=== PATIENT | male | born 1970 | race Two or more races ===

== ENCOUNTER → 2016-12-30 | Outpatient (CLI) | payer OTHER, MEDICAID | LOC: FIMAGING 09:27 | PROVIDERS: ATTEND Internal Medicine | DX: N43.3 Hydrocele, unspecified (principal); N50.89 Other specified disorders of the male genital organs; B20 Human immunodeficiency virus [HIV] disease ==

== ENCOUNTER 2018-05-18 16:45 | Emergency (ER) | payer OTHER ==
--- NOTE | 2018-05-18 17:06 | EDPHY ---
H & P Stated Complaint: Fatigue/dysuria Time Seen by Provider: 05/18/18 17:05 HPI/ROS: HPI: This is a 48-year-old male who presents with Chief Complaint: Fatigue, dysuria Location: Quality: Burning urination Duration: Since this morning Signs and Symptoms: + fever, no nausea, no vomiting, no hematemesis, no blood in stool, no abdominal bloating, no diarrhea, + back pain, + urinary symptoms, no testicular/groin pain, no indigestion, no chest pain, no shortness of breath Timing: Acute, rapid onset, constant Severity: Moderate Context: Patient is immunocompromised, HIV positive with undetectable viral load as recent as March 2018, followed by Dr. Jimenez, presents with sudden onset this morning of a temperature of a 102 F accompanied by burning with urination and back pain. Patient reports that he has a history of urethral stricture diagnosed 2 years ago but has not followed up as had an unpleasant experience in the office with Urology. Patient denies any concerns for STDs. Patient received influenza vaccine this year. Patient reports he is able to urinate but feels pressure. Patient also complains of right lower quadrant left lower quadrant abdominal tenderness that is nonradiating in nature. Patient reports fatigue and decreased appetite. Last prostate exam was within the last year. Modifying Factors: Took ibuprofen at 2:00 p.m. Approximately 3 hr prior to arrival Comment: ROS: A comprehensive 10 system review of systems is otherwise negative aside from elements mentioned in the history of present illness. MEDICAL/SURGICAL/SOCIAL HISTORY: Medical history: CHI, HIV Surgical history: ortho surgeries Social history: Never smoked. . Denies drug use. Family history noncontributory. CONSTITUTIONAL: Nontoxic-appearing, polite and cooperative, middle-aged male, awake and alert, no obvious distress HEENT: Atraumatic and normocephalic, PERRL, EOMI. Nares patent; no rhinorrhea; no nasal mucosal edema. Tympanic membranes clear. Oropharynx clear, no exudate and moist pink mucosa. Airway patent. No lymphadenopathy. No meningismus. Cardiovascular: Normal S1/S2, regular rate, regular rhythm, without murmur rub or gallop. PULMONARY/CHEST: Symmetrical and nontender. Clear to auscultation bilaterally. Good air movement. No accessory muscle usage. ABDOMEN: Soft, nondistended, mild right lower quadrant and left lower quadrant tenderness, no rebound, no guarding, no peritoneal signs, no masses or organomegaly. No CVAT. EXTREMITIES: 2/2 pulses, strength 5/5, no deformities, no clubbing, no cyanosis or edema. NEUROLOGICAL: no focal neuro deficits. GCS 15. SKIN: Warm and dry, no erythema. no rash. Good capillary refill. Source: Patient, Old records Exam Limitations: No limitations - Personal History Current Tetanus/Diphtheria Vaccine: Yes - Medical/Surgical History Hx Asthma: No Hx Chronic Respiratory Disease: No Hx Diabetes: No Hx Cardiac Disease: No Hx Renal Disease: No Hx Cirrhosis: No Hx Alcoholism: No Hx HIV/AIDS: Yes Hx Splenectomy or Spleen Trauma: No Other PMH: ortho surgeries, CHI, HIV - Social History Smoking Status: Never smoked Constitutional: Initial Vital Signs Temperature (C) 36.8 C 05/18/18 16:58 Heart Rate 93 05/18/18 16:58 Respiratory Rate 18 05/18/18 16:58 Blood Pressure 120/75 05/18/18 16:58 O2 Sat (%) 95 05/18/18 16:58 O2 Delivery Mode Room Air Allergies/Adverse Reactions: No Known Allergies Allergy (Verified 05/18/18 17:01) Home Medications: Medication Instructions Recorded Complera Tablet 09/03/15 Sulfamethox/Tmp 800/160 mg 1 tab PO BID 28 Days #0 tab 05/18/18 [Bactrim Ds] Medical Decision Making - Diagnostics Imaging Results: Imaging Impressions Abdomen CT 05/18/18 17:11 Impression: 1. Mild bladder wall thickening with left ureteral enhancement, suggesting infection/inflammation, without CT evidence of pyelonephritis. 2. Additional findings, as above. Findings discussed with Elaina Lozano PA-C, on May 18, 2018 at 1842. E:NW/amm ED Course/Re-evaluation: Vital signs reviewed and stable upon arrival. IV access, laboratory studies including lactic acid, urinalysis, urine GC, CT abdomen and pelvis scan ordered Patient will be given 2 L normal saline, p. O. Tylenol 1000 mg High concern for prostatitis. Patient is immuno compromised. 1829: WBC 16 K with left shift, lactic acid 1.2, potassium 3.9, creatinine 1.2 Urinalysis shows 1+ LE, 15-25 WBCs, trace bacteria GC pending; doubt prostatitis is caused by STDs Given IV Rocephin 2 grams and a prescription for Bactrim 184: Called by radiologist who advised that CT abdomen and pelvis scan shows no signs of appendicitis no diverticulitis no obstruction colitis. Does show a thickened bladder which is concerning for cystitis/UTI but no signs of pyelonephritis. 190: Offered patient admission due to immunocompromised with UTI/prostatitis. Patient and politely declined and feel appropriate to be discharged home with Urology follow-up. Vital signs stable at discharge. This patient was seen under the supervision of my secondary supervising physician. I evaluated care for this patient independently. Discussed this patient with Dr. Mane who did not see the patient. Differential Diagnosis: Abdominal pain including but not limited to appendicitis, cholecystitis, gastritis and urinary tract infection. - Data Points Laboratory Results: Laboratory Results 05/18/18 17:20 05/18/18 17:20 05/18/18 05/18/18 05/18/18 17:20 17:20 17:20 WBC RBC Hgb Hct MCV MCH MCHC RDW Plt Count MPV Neut % (Auto) Lymph % (Auto) [place] % (Auto) Eos % (Auto) Baso % (Auto) Nucleat RBC Rel Count Absolute Neuts (auto) Absolute Lymphs (auto) Absolute Monos (auto) Absolute Eos (auto) Absolute Basos (auto) Absolute Nucleated RBC Immature Gran % Immature Gran # VBG Lactic Acid Sodium 135 mEq/L mEq/L (135-145) Potassium 3.9 mEq/L mEq/L (3.5-5.2) Chloride 104 mEq/L mEq/L (97-110) Carbon Dioxide 19 mEq/l L mEq/l (22-31) Anion Gap 12 mEq/L mEq/L (6-14) BUN 15 mg/dL mg/dL (7-23) Creatinine 1.2 mg/dL mg/dL (0.7-1.3) Estimated GFR > 60 Glucose 108 mg/dL H mg/dL (70-100) Calcium 9.2 mg/dL mg/dL (8.5-10.4) Total Bilirubin 1.8 mg/dL H mg/dL (0.1-1.4) Conjugated Bilirubin 0.4 mg/dL mg/dL (0.0-0.5) Unconjugated Bilirubin 1.4 mg/dL H mg/dL (0.0-1.1) AST 28 IU/L IU/L (17-59) ALT 51 IU/L IU/L (21-72) Alkaline Phosphatase 114 IU/L IU/L (38-126) Total Protein 7.6 g/dL g/dL (6.3-8.2) Albumin 4.4 g/dL g/dL (3.5-5.0) Urine Color PALE YELLOW Urine Appearance CLEAR Urine pH 5.0 (5.0-7.5) Ur Specific [place] 1.003 (1.002-1.030) Urine Protein NEGATIVE (NEGATIVE) Urine Ketones NEGATIVE (NEGATIVE) Urine Blood 1+ H (NEGATIVE) Urine Nitrate NEGATIVE (NEGATIVE) Urine Bilirubin NEGATIVE (NEGATIVE) Urine Urobilinogen NEGATIVE EU EU (0.2-1.0) Ur Leukocyte Esterase 1+ H (NEGATIVE) Urine RBC 1-3 /hpf /hpf (0-3) Urine WBC 15-25 /hpf H /hpf (0-3) Ur Epithelial Cells NONE SEEN /lpf /lpf (NONE-1+) Urine Bacteria TRACE /hpf H /hpf (NONE SEEN) Urine Mucus TRACE /lpf /lpf (NONE-1+) Urine Glucose NEGATIVE (NEGATIVE) C.trachomatis RNA (TMA) Pending N.gonorrhoeae RNA (TMA) Pending 05/18/18 05/18/18 17:20 17:20 WBC 15.59 10^3/uL H 10^3/uL (3.80-9.50) RBC 4.90 10^6/uL 10^6/uL (4.40-6.38) Hgb 15.4 g/dL g/dL (13.7-17.5) Hct 43.7 % % (40.0-51.0) MCV 89.2 fL fL (81.5-99.8) MCH 31.4 pg pg (27.9-34.1) MCHC 35.2 g/dL g/dL (32.4-36.7) RDW 11.9 % % (11.5-15.2) Plt Count 284 10^3/uL 10^3/uL (150-400) MPV 9.2 fL fL (8.7-11.7) Neut % (Auto) 85.3 % H % (39.3-74.2) Lymph % (Auto) 7.4 % L % (15.0-45.0) [place] % (Auto) 6.4 % % (4.5-13.0) Eos % (Auto) 0.1 % L % (0.6-7.6) Baso % (Auto) 0.3 % % (0.3-1.7) Nucleat RBC Rel Count 0.0 % % (0.0-0.2) Absolute Neuts (auto) 13.31 10^3/uL H 10^3/uL (1.70-6.50) Absolute Lymphs (auto) 1.15 10^3/uL 10^3/uL (1.00-3.00) Absolute Monos (auto) 1.00 10^3/uL H 10^3/uL (0.30-0.80) Absolute Eos (auto) 0.01 10^3/uL L 10^3/uL (0.03-0.40) Absolute Basos (auto) 0.04 10^3/uL 10^3/uL (0.02-0.10) Absolute Nucleated RBC 0.00 10^3/uL 10^3/uL (0-0.01) Immature Gran % 0.5 % % (0.0-1.1) Immature Gran # 0.08 10^3/uL 10^3/uL (0.00-0.10) VBG Lactic Acid 1.2 mmol/L mmol/L (0.7-2.1) Sodium Potassium Chloride Carbon Dioxide Anion Gap BUN Creatinine Estimated GFR Glucose Calcium Total Bilirubin Conjugated Bilirubin Unconjugated Bilirubin AST ALT Alkaline Phosphatase Total Protein Albumin Urine Color Urine Appearance Urine pH Ur Specific [place] Urine Protein Urine Ketones Urine Blood Urine Nitrate Urine Bilirubin Urine Urobilinogen Ur Leukocyte Esterase Urine RBC Urine WBC Ur Epithelial Cells Urine Bacteria Urine Mucus Urine Glucose C.trachomatis RNA (TMA) N.gonorrhoeae RNA (TMA) Medications Given: Discontinued Medications Acetaminophen (Tylenol) 1,000 mg PO EDNOW ONE Stop: 05/18/18 17:13 Last Admin: 05/18/18 17:24 Dose: 1,000 mg Sodium Chloride (Ns) 1,000 mls @ 0 mls/hr IV ONCE ONE; Wide Open PRN Reason: Protocol Stop: 05/18/18 17:12 Last Admin: 05/18/18 17:24 Dose: 1,000 mls Sodium Chloride (Ns) 1,000 mls @ 0 mls/hr IV ONCE ONE; Wide Open PRN Reason: Protocol Stop: 05/18/18 17:12 Last Admin: 05/18/18 17:24 Dose: 1,000 mls Ceftriaxone Sodium 2 gm/ (Sodium Chloride) 50 mls @ 100 mls/hr IV EDNOW ONE PRN Reason: Protocol Stop: 05/18/18 19:12 Last Admin: 05/18/18 19:11 Dose: 50 mls Departure - Departure Disposition: Home, Routine, Self-Care Clinical Impression: Lower urinary tract infection, acute, Acute bacterial prostatitis Condition: Good Instructions: Prostatitis (ED), Urinary Tract Infection in Men (ED) Additional Instructions: Consume a minimum of 8-10 glasses of water or electrolyte fluid replacement drinks that include Gatorade, Powerade, Pedialyte. Take all antibiotic as directed. Do not skip a dose. Keep follow-up appoint with Urology at the end of the month. Return to the Emergency Room if symptoms do not resolve in the next 72 hours or experience intractable abdominal pain/nausea/vomiting. Referrals: Meena Camilo MD [Primary Care Provider] - As per Instructions [facility] [Provider Group] - 06/05/18 Prescriptions: Sulfamethox/Tmp 800/160 mg [Bactrim Ds] 1 tab PO BID 28 Days #0 tab
[2018-05-18] MEDS ORDERED: NS 1,000 ML IV ONE ×2 (17:11)
[2018-05-18] MEDS ORDERED: ACETAMINOPHEN 500 MG TAB PO ONE (17:12)
[2018-05-18 17:34] LABS: PLATELET COUNT 284 10^3/uL (150-400)
[2018-05-18] MEDS ORDERED: IOPAMIDOL (ISOVUE-300) 100 ML BTL ONE (17:38)
[2018-05-18 20:12] VITALS: BP 124/70
[2018-05-19 11:00] LABS: GC AMPLIFICATION GENPROBE NEGATIVE (NEGATIVE)
== END 2018-05-18 20:12 | disposition home or self-care (01) ==
DX: N39.0 Urinary tract infection, site not specified (principal); N41.0 Acute prostatitis; E86.9 Volume depletion, unspecified; Z21 Asymptomatic human immunodeficiency virus [HIV] infection status
CPT/HCPCS: 74177; 96361; 96365; 99285; J0696; Q9967

== ENCOUNTER 2018-05-19 13:18 | Observation (INO) | payer OTHER ==
--- NOTE | 2018-05-19 14:35 | EDPHY ---
H & P Stated Complaint: Pain with urination, bloody stool seen yeasterday for same Time Seen by Provider: 05/19/18 14:32 - Personal History Current Tetanus Diphtheria and Acellular Pertussis (TDAP): Yes - Medical/Surgical History Hx Asthma: No Hx Chronic Respiratory Disease: No Hx Diabetes: No Hx Cardiac Disease: No Hx Renal Disease: No Hx Cirrhosis: No Hx Alcoholism: No Hx HIV/AIDS: Yes Hx Splenectomy or Spleen Trauma: No Other PMH: ortho surgeries, CHI, HIV - Social History Smoking Status: Never smoked Constitutional: Initial Vital Signs Temperature (C) 37.5 C 05/19/18 13:35 Heart Rate 100 05/19/18 13:35 Respiratory Rate 16 05/19/18 13:35 Blood Pressure 141/92 H 05/19/18 13:35 O2 Sat (%) 98 05/19/18 13:35 O2 Delivery Mode Room Air Allergies/Adverse Reactions: No Known Allergies Allergy (Verified 05/18/18 17:01) Home Medications: Medication Instructions Recorded Sulfamethox/Tmp 800/160 mg 1 tab PO BID 28 Days #0 tab 05/18/18 [Bactrim Ds] Acetamn/Diphenhydramine 500/25 1 - 2 each PO HS PRN 05/19/18 [Tylenol PM (*)] Cholecalciferol Vit D3 [Vitamin D3 1,000 units PO DAILY 05/19/18 (*)] Emtricitab/Rilpiviri/Tenof Ala 1 each PO DAILY 05/19/18 [Odefsey Tablet] Ibuprofen/Diphenhydramine Cit 1 - 2 each PO HS PRN 05/19/18 [MOTRIN PM CAPLET] Medical Decision Making ED Course/Re-evaluation: CHIEF COMPLAINT: Black stool, abdominal pain HISTORY OF PRESENT ILLNESS: The patient is a 48 y/o male with HIV with undetectable viral load who returns for the second time in 24 hours now complaining of black stools. He was seen here yesterday for acute onset dysuria , fever, and back pain. An abdominal CT showed bladder wall thickening with left ureteral enhancement, WBC was elevated, and UA showed evidence of a UTI. He was treated with a dose of Rocephin here and discharged on Bactrim as he declined admission. He returns this morning with worsening abdominal pain and black stool. No vomiting. He continues to have polyuria and dysuria, though this is not new for him. He saw a urologist in 2016 and it was recommended he undergo a cystoscopy, but due to a bad experience with that urologist he decided not to return for this procedure. REVIEW OF SYSTEMS: A comprehensive 10 system review of systems is otherwise negative aside from elements mentioned in the history of present illness and medical decision making. PHYSICAL EXAM: HR, BP, O2 Sat, RR. Temp noted General Appearance: Alert, well hydrated, appropriate, and non-toxic appearing. Head: Atraumatic without scalp tenderness or obvious injury Eyes: Pupils equal, round, reactive to light and accommodation, EOMI, no trauma , no injection. Nose: Atraumatic, no rhinorrhea, clear. Throat: Mucus membranes moist. Neck: Supple, non-tender, no lymphadenopathy. Respiratory: No retractions, no distress, no wheezes, and no accessory muscle use. Lungs are clear to auscultation bilaterally. Cardiovascular: Regular rate and rhythm, no murmurs, rubs, or gallops. Good capillary refill all extremities. Gastrointestinal: Abdomen is soft, non-tender, non-distended, no masses, no rebound, no guarding, no peritoneal signs. Musculoskeletal: Normal active ROM of all extremities, atraumatic. Neurological: Alert, appropriate, and interactive. The patient has non-focal cranial nerves, motor, sensory, and cerebellar exam. Skin: No rashes, good turgor, no nodules on palpation. PAST MEDICAL HISTORY: HIV+ no detectable viral load on [facility] and followed by Dr. Camilo; urethral stricture PAST SURGICAL HISTORY: Orthopedic surgeries SOCIAL HISTORY: Nonsmoker. . No drug use. Prior medical records reviewed including ED visit yesterday, 05/18/18, for dysuria. DIFFERENTIAL DIAGNOSIS: The differential diagnosis for the patient's upper GI bleeding included but was not limited to ulcer disease, gastritis, Jeniffer- Rankin tear, and esophageal varices. MEDICAL DECISION MAKING: This is a 48 y/o HIV+ male who presents with a 1-day history of worsening abdominal pain now associated with black stools. He was evaluated yesterday for dysuria and fever and started on antibiotics. An abdominal CT notably showed thickening of the bladder wall and left ureter. Plan for IV, labs, UA, and admission for upper GI bleed. 1500: Consulted with Dr. Lozada, ID. He would not expect upper GI bleeding associated with any of his medications. 80mg IV Protonix ordered for symptoms. Spoke with hospitalist service. Dr. Estrada accepts admission for upper GI bleed and prostatitis. - Data Points Laboratory Results: Laboratory Results 05/19/18 14:35 05/19/18 14:35 05/19/18 05/19/18 05/19/18 14:35 14:35 14:35 WBC 11.43 10^3/uL H 10^3/uL (3.80-9.50) RBC 4.79 10^6/uL 10^6/uL (4.40-6.38) Hgb 15.0 g/dL g/dL (13.7-17.5) Hct 42.8 % % (40.0-51.0) MCV 89.4 fL fL (81.5-99.8) MCH 31.3 pg pg (27.9-34.1) MCHC 35.0 g/dL g/dL (32.4-36.7) RDW 11.9 % % (11.5-15.2) Plt Count 253 10^3/uL 10^3/uL (150-400) MPV 9.1 fL fL (8.7-11.7) Neut % (Auto) 82.1 % H % (39.3-74.2) Lymph % (Auto) 11.3 % L % (15.0-45.0) [place] % (Auto) 5.9 % % (4.5-13.0) Eos % (Auto) 0.1 % L % (0.6-7.6) Baso % (Auto) 0.2 % L % (0.3-1.7) Nucleat RBC Rel Count 0.0 % % (0.0-0.2) Absolute Neuts (auto) 9.39 10^3/uL H 10^3/uL (1.70-6.50) Absolute Lymphs (auto) 1.29 10^3/uL 10^3/uL (1.00-3.00) Absolute Monos (auto) 0.67 10^3/uL 10^3/uL (0.30-0.80) Absolute Eos (auto) 0.01 10^3/uL L 10^3/uL (0.03-0.40) Absolute Basos (auto) 0.02 10^3/uL 10^3/uL (0.02-0.10) Absolute Nucleated RBC 0.00 10^3/uL 10^3/uL (0-0.01) Immature Gran % 0.4 % % (0.0-1.1) Immature Gran # 0.05 10^3/uL 10^3/uL (0.00-0.10) PT 13.8 SEC SEC (12.0-15.0) INR 1.04 (0.83-1.16) APTT 28.2 SEC SEC (23.0-38.0) Sodium 135 mEq/L mEq/L (135-145) Potassium 3.9 mEq/L mEq/L (3.5-5.2) Chloride 102 mEq/L mEq/L (97-110) Carbon Dioxide 23 mEq/l mEq/l (22-31) Anion Gap 10 mEq/L mEq/L (6-14) BUN 10 mg/dL mg/dL (7-23) Creatinine 1.3 mg/dL mg/dL (0.7-1.3) Estimated GFR 59 Glucose 109 mg/dL H mg/dL (70-100) Calcium 9.1 mg/dL mg/dL (8.5-10.4) Total Bilirubin 1.8 mg/dL H mg/dL (0.1-1.4) Conjugated Bilirubin 0.4 mg/dL mg/dL (0.0-0.5) Unconjugated Bilirubin 1.4 mg/dL H mg/dL (0.0-1.1) AST 25 IU/L IU/L (17-59) ALT 49 IU/L IU/L (21-72) Alkaline Phosphatase 108 IU/L IU/L (38-126) Total Protein 7.5 g/dL g/dL (6.3-8.2) Albumin 4.3 g/dL g/dL (3.5-5.0) Lipase 53 IU/L IU/L (23-300) Urine Color Urine Appearance Urine pH Ur Specific [place] Urine Protein Urine Ketones Urine Blood Urine Nitrate Urine Bilirubin Urine Urobilinogen Ur Leukocyte Esterase Urine RBC Urine WBC Ur Epithelial Cells Urine Sperm Urine Glucose 05/19/18 14:00 WBC RBC Hgb Hct MCV MCH MCHC RDW Plt Count MPV Neut % (Auto) Lymph % (Auto) [place] % (Auto) Eos % (Auto) Baso % (Auto) Nucleat RBC Rel Count Absolute Neuts (auto) Absolute Lymphs (auto) Absolute Monos (auto) Absolute Eos (auto) Absolute Basos (auto) Absolute Nucleated RBC Immature Gran % Immature Gran # PT INR APTT Sodium Potassium Chloride Carbon Dioxide Anion Gap BUN Creatinine Estimated GFR Glucose Calcium Total Bilirubin Conjugated Bilirubin Unconjugated Bilirubin AST ALT Alkaline Phosphatase Total Protein Albumin Lipase Urine Color YELLOW Urine Appearance HAZY Urine pH 7.0 (5.0-7.5) Ur Specific [place] 1.010 (1.002-1.030) Urine Protein NEGATIVE (NEGATIVE) Urine Ketones NEGATIVE (NEGATIVE) Urine Blood 1+ H (NEGATIVE) Urine Nitrate NEGATIVE (NEGATIVE) Urine Bilirubin NEGATIVE (NEGATIVE) Urine Urobilinogen 4.0 EU H EU (0.2-1.0) Ur Leukocyte Esterase NEGATIVE (NEGATIVE) Urine RBC 5-10 /hpf H /hpf (0-3) Urine WBC 3-5 /hpf H /hpf (0-3) Ur Epithelial Cells TRACE /lpf /lpf (NONE-1+) Urine Sperm PRESENT /hpf /hpf (NONE SEEN) Urine Glucose NEGATIVE (NEGATIVE) Medications Given: Discontinued Medications Sodium Chloride (Ns) 1,000 mls @ 0 mls/hr IV EDNOW ONE; Wide Open PRN Reason: Protocol Stop: 05/19/18 14:43 Last Admin: 05/19/18 14:57 Dose: 1,000 mls Pantoprazole Sodium (Protonix) 80 mg IVP EDNOW ONE Stop: 05/19/18 15:04 Last Admin: 05/19/18 15:48 Dose: 80 mg Departure - Departure Disposition: [facility] In[facility] Acute Clinical Impression: Upper GI bleed Prostatitis Qualifiers: Prostatitis type: other Qualified Code(s): N41.8 - Other inflammatory diseases of prostate Condition: Fair Referrals: Meena Camilo MD [Primary Care Provider] - As per Instructions Report Scribed for: Landen Tobin Report Scribed by: Pily Mast Date of Report: 05/19/18 Time of Report: 15:05
[2018-05-19] MEDS ORDERED: NS 1,000 ML IV ONE (14:42)
[2018-05-19 14:57] LABS: PLATELET COUNT 253 10^3/uL (150-400)
[2018-05-19 15:02] LABS: INR 1.04 (0.83-1.16); PROTIME(PATIENT) 13.8 SEC (12.0-15.0)
[2018-05-19] MEDS ORDERED: PANTOPRAZOLE SODIUM 40 MG VIAL IVP ONE (15:03)
[2018-05-19] MEDS ORDERED: ONDANSETRON DISINTEGRATING 4 MG TAB PO PRN (16:49)
[2018-05-19] MEDS ORDERED: ACETAMN/DIPHENHYDRAMINE 500/25MG TAB PO PRN (16:50)
[2018-05-19] MEDS: NS 1,000 ML IV SCH (18:11)
[2018-05-19] MEDS: PANTOPRAZOLE SODIUM 40 MG VIAL IVP SCH (20:19)
[2018-05-19] MEDS: ACETAMINOPHEN 325 MG TAB PO PRN (20:26)
--- NOTE | 2018-05-19 20:57 | PDGENHP ---
History and Physical - Chief Complaint dark stools - History of Present Illness 48yo M with HIV (CD4 697 and VL 0 from 07/2017), recent diagnosis of UTI here with black stools. Came to ED yesterday with dysuria, increase in frequency of urination, fevers, and back pain. Abdominal CT showed bladder wall thickening, WBC 15k, and UA consistent with UTI. Received one dose of CTX and discharged home with bactrim. Returned to ED today with worsening abdominal pain and black stools. Has had several BMs today and all black. No overt blood. Unsure if stools are tarry/sticky. No prior h/o liver disease. Infrequent alcohol use. Rarely uses NSAIDs. No vomiting but some nausea. Continues to have urinary symptoms. In the ED, hemoglobin normal and vitals stable. Given multiple acute medical issues, patient is being admitted for further monitoring and evaluation. Case discussed with ED margie Tobin. History Information - Allergies/Home Medication List Allergies/Adverse Reactions: No Known Allergies Allergy (Verified 05/18/18 17:01) Home Medications: Acetamn/Diphenhydramine 500/25 [Tylenol PM (*)] 1 - 2 each PO HS PRN 05/19/18 [ Last Taken Unknown] Cholecalciferol Vit D3 [Vitamin D3 (*)] 1,000 units PO DAILY 05/19/18 [Last Taken 05/19/18] Emtricitab/Rilpiviri/Tenof Ala [Odefsey Tablet] 1 each PO DAILY 05/19/18 [Last Taken 05/19/18] Ibuprofen/Diphenhydramine Cit [MOTRIN PM CAPLET] 1 - 2 each PO HS PRN 05/19/18 [ Last Taken Unknown] I have personally reviewed and updated: family history, medical history, social history, surgical history - Past Medical History Additional medical history: HIV (reports comliance with anti-retrovirals, no AIDS-defining illnesses) - Surgical History Additional surgical history: several orthopedic surgeries - Family History Positive for: non-pertinent - Social History Smoking Status: Never smoked Alcohol Use: Rarely Drug Use: None Additional social history: Lives with Review of Systems Review of Systems: ROS: 10pt was reviewed & negative except for what was stated in HPI & below Physical Exam Physical Exam: Temp Pulse Resp BP Pulse Ox 37.7 C 87 16 122/73 H 93 05/19/18 19:48 05/19/18 19:48 05/19/18 19:48 05/19/18 19:48 05/19/18 19:48 Constitutional: no apparent distress, appears nourished, not in pain Eyes: PERRL, anicteric sclera, EOMI Ears, Nose, Mouth, Throat: moist mucous membranes, hearing normal, ears appear normal, no oral mucosal ulcers Cardiovascular: regular rate and rhythym, no murmur, rub, or gallop, No edema Respiratory: no respiratory distress, no rales or rhonchi, clear to auscultation Gastrointestinal: normoactive bowel sounds, soft, non-tender abdomen, no palpable masses Genitourinary: no bladder fullness, no bladder tenderness, hemorrhoids (large non-bleeding external hemorrhoid at 12 o'clock) Skin: warm, normal color, no rashes or abrasions, no fluctuance, no induration, No mottled Musculoskeletal: full muscle strength, no muscle tenderness, normal joint ROM, no joint effusions Neurologic: AAOx3 Psychiatric: interacting appropriately, not anxious, not encephalopathic, thought process linear Lab Data & Imaging Review 05/19/18 21:28 05/19/18 14:35 WBC 11.43 10^3/uL (3.80-9.50) H 05/19/18 14:35 RBC 4.79 10^6/uL (4.40-6.38) 05/19/18 14:35 Hgb 15.0 g/dL (13.7-17.5) 05/19/18 14:35 Hct 42.8 % (40.0-51.0) 05/19/18 14:35 MCV 89.4 fL (81.5-99.8) 05/19/18 14:35 MCH 31.3 pg (27.9-34.1) 05/19/18 14:35 MCHC 35.0 g/dL (32.4-36.7) 05/19/18 14:35 RDW 11.9 % (11.5-15.2) 05/19/18 14:35 Plt Count 253 10^3/uL (150-400) 05/19/18 14:35 MPV 9.1 fL (8.7-11.7) 05/19/18 14:35 Neut % (Auto) 82.1 % (39.3-74.2) H 05/19/18 14:35 Lymph % (Auto) 11.3 % (15.0-45.0) L 05/19/18 14:35 Coleman % (Auto) 5.9 % (4.5-13.0) 05/19/18 14:35 Eos % (Auto) 0.1 % (0.6-7.6) L 05/19/18 14:35 Baso % (Auto) 0.2 % (0.3-1.7) L 05/19/18 14:35 Nucleat RBC Rel Count 0.0 % (0.0-0.2) 05/19/18 14:35 Absolute Neuts (auto) 9.39 10^3/uL (1.70-6.50) H 05/19/18 14:35 Absolute Lymphs (auto) 1.29 10^3/uL (1.00-3.00) 05/19/18 14:35 Absolute Monos (auto) 0.67 10^3/uL (0.30-0.80) 05/19/18 14:35 Absolute Eos (auto) 0.01 10^3/uL (0.03-0.40) L 05/19/18 14:35 Absolute Basos (auto) 0.02 10^3/uL (0.02-0.10) 05/19/18 14:35 Absolute Nucleated RBC 0.00 10^3/uL (0-0.01) 05/19/18 14:35 Immature Gran % 0.4 % (0.0-1.1) 05/19/18 14:35 Immature Gran # 0.05 10^3/uL (0.00-0.10) 05/19/18 14:35 PT 13.8 SEC (12.0-15.0) 05/19/18 14:35 INR 1.04 (0.83-1.16) 05/19/18 14:35 APTT 28.2 SEC (23.0-38.0) 05/19/18 14:35 Sodium 135 mEq/L (135-145) 05/19/18 14:35 Potassium 3.9 mEq/L (3.5-5.2) 05/19/18 14:35 Chloride 102 mEq/L (97-110) 05/19/18 14:35 Carbon Dioxide 23 mEq/l (22-31) 05/19/18 14:35 Anion Gap 10 mEq/L (6-14) 05/19/18 14:35 BUN 10 mg/dL (7-23) 05/19/18 14:35 Creatinine 1.3 mg/dL (0.7-1.3) 05/19/18 14:35 Estimated GFR 59 05/19/18 14:35 Glucose 109 mg/dL (70-100) H 05/19/18 14:35 Calcium 9.1 mg/dL (8.5-10.4) 05/19/18 14:35 Total Bilirubin 1.8 mg/dL (0.1-1.4) H 05/19/18 14:35 Conjugated Bilirubin 0.4 mg/dL (0.0-0.5) 05/19/18 14:35 Unconjugated Bilirubin 1.4 mg/dL (0.0-1.1) H 05/19/18 14:35 AST 25 IU/L (17-59) 05/19/18 14:35 ALT 49 IU/L (21-72) 05/19/18 14:35 Alkaline Phosphatase 108 IU/L (38-126) 05/19/18 14:35 Total Protein 7.5 g/dL (6.3-8.2) 05/19/18 14:35 Albumin 4.3 g/dL (3.5-5.0) 05/19/18 14:35 Lipase 53 IU/L (23-300) 05/19/18 14:35 Urine Color YELLOW 05/19/18 14:00 Urine Appearance HAZY 05/19/18 14:00 Urine pH 7.0 (5.0-7.5) 05/19/18 14:00 Ur Specific [place] 1.010 (1.002-1.030) 05/19/18 14:00 Urine Protein NEGATIVE (NEGATIVE) 05/19/18 14:00 Urine Ketones NEGATIVE (NEGATIVE) 05/19/18 14:00 Urine Blood 1+ (NEGATIVE) H 05/19/18 14:00 Urine Nitrate NEGATIVE (NEGATIVE) 05/19/18 14:00 Urine Bilirubin NEGATIVE (NEGATIVE) 05/19/18 14:00 Urine Urobilinogen 4.0 EU (0.2-1.0) H 05/19/18 14:00 Ur Leukocyte Esterase NEGATIVE (NEGATIVE) 05/19/18 14:00 Urine RBC 5-10 /hpf (0-3) H 05/19/18 14:00 Urine WBC 3-5 /hpf (0-3) H 05/19/18 14:00 Ur Epithelial Cells TRACE /lpf (NONE-1+) 05/19/18 14:00 Urine Sperm PRESENT /hpf (NONE SEEN) 05/19/18 14:00 Urine Glucose NEGATIVE (NEGATIVE) 05/19/18 14:00 Stool Occult Bld Scrn NEGATIVE (NEGATIVE) 05/19/18 18:25 Assessment & Plan Assessment: 48yo M with HIV (CD4 697 and VL 0 from 07/2017), recent diagnosis of UTI here with black stools. Plan: 1. Potential GIB: I actually have a low suspicion for this. BUN is normal, fecal occult negative. No big risk factors for bleeding. - Start IV PPI - Monitor serial H/H - If drop in H/H or obvious bleeding, consider endoscopy. Dr Tobin had discussed with GI in ED but I do not think they need to see yet. 2. UTI: Urine culture from 05/18 growing >100CFU gram negative non-lactose fermenters. Leukocytosis improving, not septic. Reports history of urethral stricture but hasn't followed up with urology. - CTX 1g q24h, follow culture sensitivities 3. Abdominal pain: Suspect r/t infection. - Pain control 4. HIV: Continue anti-retrovirals. VTE ppx: SCDs Diet: regular, NPO at midnight in case bleeds Code: full Dispo: Admit under observation
[2018-05-19] MEDS ORDERED: SULFAMETHOX/TMP 800/160 MG 1 TAB PO SCH (21:00)
[2018-05-19] MEDS: ONDANSETRON 4 MG/2 ML VIAL IVP PRN (21:36)
[2018-05-20] MEDS: NS 1,000 ML IV SCH (04:43)
[2018-05-20] MEDS: ACETAMINOPHEN 325 MG TAB PO PRN (04:47)
[2018-05-20] MEDS: ONDANSETRON 4 MG/2 ML VIAL IVP PRN (04:48)
[2018-05-20] MEDS ORDERED: [UNRECOGNIZED DRUG - OTHER] PO SCH (09:00)
[2018-05-20] MEDS: PANTOPRAZOLE SODIUM 40 MG VIAL IVP SCH (09:31)
--- NOTE | 2018-05-20 10:17 | PDANEPAE ---
ANE History of Present Illness EGD, colonoscopy ANE Past Medical History - Cardiovascular History Hx Hypertension: No Hx Arrhythmias: No Hx Chest Pain: No Hx Coronary Artery / Peripheral Vascular Disease: No Hx CHF / Valvular Disease: No Hx Palpitations: No - Pulmonary History Hx COPD: No Hx Asthma/Reactive Airway Disease: No Hx Recent Upper Respiratory Infection: No Hx Oxygen in Use at Home: No Hx Sleep Apnea: No Sleep Apnea Screening Result - Last Documented: Negative - Neurologic History Hx Cerebrovascular Accident: No Hx Seizures: No Hx Dementia: No - Endocrine History Hx Diabetes: No - Renal History Hx Renal Disorders: No - Liver History Hx Hepatic Disorders: No - Neurological & Psychiatric Hx Hx Neurological and Psychiatric Disorders: No - Cancer History Hx Cancer: No - Congenital Disorder History Hx Congenital Disorders: No - GI History Hx Gastrointestinal Disorders: No - Other Health History Other Health History: DIFFICULTY URINATION. HIV - Chronic Pain History Chronic Pain: No - Surgical History Prior Surgeries: MULTIPLE ORTHO, PAROTID GLAND REMOVAL ANE Review of Systems Review of systems is: negative Review of Systems: - Exercise capacity Exercise capacity: >=4 METS ANE Patient History - Allergies Allergies/Adverse Reactions: No Known Allergies Allergy (Verified 05/18/18 17:01) - Home Medications Home medications: home medication list seen and reviewed Home Medications: Acetamn/Diphenhydramine 500/25 [Tylenol PM (*)] 1 - 2 each PO HS PRN 05/19/18 [ Last Taken Unknown] Cholecalciferol Vit D3 [Vitamin D3 (*)] 1,000 units PO DAILY 05/19/18 [Last Taken 05/19/18] Emtricitab/Rilpiviri/Tenof Ala [Odefsey Tablet] 1 each PO DAILY 05/19/18 [Last Taken 05/19/18] Ibuprofen/Diphenhydramine Cit [MOTRIN PM CAPLET] 1 - 2 each PO HS PRN 05/19/18 [ Last Taken Unknown] - NPO status NPO Status: no food or drink >8 hours NPO Since - Liquids (Date): 05/20/18 NPO Since - Liquids (Time): 00:00 NPO Since - Solids (Date): 05/18/18 NPO Since - Solids (Time): 08:00 - Anes Hx Anes Hx: no prior problems - Smoking Hx Smoking Status: Never smoked - Alcohol Use Alcohol Use: Rarely - Family Anes Hx Family Anes Hx: none Family Hx Anesthesia Complications: NONE ANE Labs/Vital Signs - Labs Result Diagrams: 05/20/18 04:45 05/19/18 14:35 - Vital Signs Vital Signs: reviewed preoperatively; see RN documention for details Blood Pressure: 135/82 Heart Rate: 77 Respiratory Rate: 16 O2 Sat (%): 96 Height: 160.02 cm Weight: 83.007 kg ANE Physical Exam - Airway Neck exam: FROM Mallampati Score: Class 2 Mouth exam: normal dental/mouth exam - Pulmonary Pulmonary: no respiratory distress - Cardiovascular Cardiovascular: regular rate and rhythym - ASA Status ASA Status: II ANE Anesthesia Plan Total IV Anesthesia: Yes
[2018-05-20] MEDS ORDERED: PROPOFOL/EMULSION 500 MG/50 ML BOTTLE IV ONE (10:18)
[2018-05-20] MEDS ORDERED: LIDOCAINE 2% 100 MG/5 ML SYR ONE ×2 (10:29)
[2018-05-20] MEDS ORDERED: NALOXONE HCL 0.4 MG/ML INJ IVP PRN (10:53)
[2018-05-20] MEDS ORDERED: fentaNYL 100 MCG/2 ML INJ IVP PRN (10:53)
[2018-05-20] MEDS ORDERED: HYDROCODONE/APAP 5/325 TAB PO PRN (10:53)
[2018-05-20] MEDS ORDERED: oxyCODONE IR 5 MG TAB PO PRN (10:53)
[2018-05-20] MEDS ORDERED: ONDANSETRON 4 MG/2 ML VIAL IVP PRN (10:53)
--- NOTE | 2018-05-20 10:55 | POSTANESTH ---
Post Anesthetic Evaluation Cardiovascular Status: Normal, Stable, Similar to Pre-Op Cond Respiratory Status: Normal, Stable, Similar to Pre-op Cond. Level of Consciousness/Mental Status: Can Participate in Eval, Mildly Sleepy, Arousable Pain Control: Adequate, Prn Tx Ordered Nausea/Vomiting Control: Adequate, Prn Tx Ordered Complications Possibly Related to Anesthesia: None Noted
--- NOTE | 2018-05-20 11:13 | GIREPORT ---
[facility] Surgical Services - Endoscopy Department Patient Name: Sandeep Castro Procedure Date: 05/20/2018 10:09 AM Patient Type: Inpatient Attending MD/ ER Physician: Jus Santos MD Procedure: Upper GI endoscopy Indications: Acute post hemorrhagic anemia, Melena Patient Profile: 48 year old male presents for evaluation of melena/post hemorrhagic ane alla. Providers: Jus Santos MD Medicines: Monitored Anesthesia Care Complications: No immediate complications. Estimated blood loss: Minimal. Description of Procedure: After obtaining informed consent, the endoscope was passed under direct vision. Throughout the procedure, the patient's blood pressure, pulse, and oxygen saturations were monitored continuously. The Endoscope was intro duced through the mouth, and advanced to the second part of duodenum. The [facility] er GI endoscopy was accomplished without difficulty. The patient tolerated th e procedure well. Findings: The examined esophagus was normal. Patchy mildly erythematous mucosa was found in the gastric body and in the gastric antrum. Biopsies were taken with a cold forceps for histology. A hiatal hernia was present. The examined duodenum was normal. Estimated Blood Loss: Estimated blood loss was minimal. Post Op Diagnosis: - Normal esophagus. - Erythematous mucosa in the gastric body and antrum. Biopsied. - Hiatal hernia. - Normal examined duodenum. - Etiology? No cause of bleed noted. Will restart diet. If no signs of active GI bleed, ok to discharge home soon. Recommendation: - Return patient to [facility] for [facility] care. - Resume regular diet. - Continue present medications. - Await pathology results. - GI will sign off. - Thank you for the consultation! Attending Participation: I personally performed the entire procedure. Jus Santos MD Jus Santos MD 05/20/2018 11:12:53 AM This report has been signed electronicallyJus Santos MD Number of Addenda: 0 Note Initiated On: 05/20/2018 10:09 AM [email or web address]
--- NOTE | 2018-05-20 11:42 | GCON ---
DATE OF CONSULTATION: 05/20/2018 REFERRING PHYSICIAN: Rigoberto Estrada MD REASON FOR CONSULTATION: Melenic stools. CHIEF COMPLAINT: Melenic stools. HISTORY OF PRESENT ILLNESS: The patient is a 48-year-old male with history of HIV, recent UTI, who presents to [facility] with complaints of black diarrheal bowel movements. The patient was in his normal state of health until the day of admission when he had 3 bowel movements which were black. He does complain of some lower quadrant abdominal pain, which is worsened when he urinates. He denies any alleviating factors. He also had complaints of fevers, as well as back pain. On evaluation in the emergency room, he was found to have a urinalysis consistent with a urinary tract infection. He denies any significant NSAID use. He denies any history of gastric ulcers. In the emergency room, he had a hemoglobin of 15.0, which decreased with hydration to 13.1. I am being asked by Dr. Estrada to evaluate the patient in consultation regarding his melenic stools. PAST MEDICAL HISTORY: HIV. PAST SURGICAL HISTORY: Several orthopedic surgeries. MEDICATIONS: Acetaminophen, vitamin D3, ibuprofen p.r.n., Odefsey tablet. ALLERGIES: NKDA. FAMILY HISTORY: Cousin with colon cancer. No history of esophageal or stomach cancer. SOCIAL HISTORY: No significant alcohol or tobacco use. REVIEW OF SYSTEMS: A 12-point comprehensive review of systems was asked. Pertinent positives and negatives per HPI. PHYSICAL EXAMINATION: VITALS: Blood pressure 120/77, heart rate 79, respiratory rate 16, temperature 36. GENERAL: Awake, alert, oriented x3. No distress. HEENT: Anicteric. Moist mucosa. NECK: No JVD. CARDIOVASCULAR: Regular rate and rhythm. Positive S1, S2. No murmurs or gallops appreciated. LUNGS: Clear to auscultation bilaterally, without wheezes, rales or rhonchi. ABDOMEN: Soft, nontender, nondistended. Positive bowel sounds. No guarding. No rebound. EXTREMITIES: No clubbing, cyanosis, or edema. NEUROLOGIC: Grossly intact. PSYCH: Normal affect. SKIN: No rash. MUSCULOSKELETAL: No obvious joint effusion. BLOOD WORK: WBCs 11.35, hemoglobin 13.1, hematocrit 38.8, platelets 235. INR 1.04. Sodium 135, chloride 102, bicarb 23, BUN 10, creatinine 1.3, bilirubin 1.8, AST 25, ALT 49, lipase 53. ASSESSMENT AND PLAN: 1. Melenic stools- with anemia. Hemoccult negative. Minimal NSAIDs. Etiology ? Peptic ulcer disease versus other? At this time, due to his drop in hemoglobin level and possibly the gastrointestinal bleed, would recommend to proceed with upper endoscopy to delineate the cause of symptoms. If negative, may be able to discharge later today. The risks, benefits, and alternatives of the procedure discussed with the patient. The risk of infection, bleeding, perforation, and sedation were discussed. All questions answered. Informed consent was obtained. 2. Human immunodeficiency virus. 3. Urinary tract infection. Thank you very much for this consult. /[id number]/MODL MTDD
[2018-05-20 13:12] VITALS: BP 137/92
--- NOTE | 2018-05-20 13:52 | ASMTDCNOTE ---
Case Management Discharge Discharge Order Complete? Answers: Yes Patient to Obtain Answers: via Family Medications Transportation Arranged Answers: Family/Friends Transport will Pick (Date 05/20/2018 12:00 AM & Time) Family Notified Answers: Yes Notes: in the room Discharge Comments Notes: Spoke with pt and in the room, and with RN. Pt to discharge home independently with support from . Pt triggered CAGE screen and scored positive. Pt is aware he needs to cut back on his drinking, states he has attending AA before and knows how to do it. Pt declined supportive resources from CM. Pt informed of screen. No further CM needs noted at this time. CM available should needs change. Date Signed: 05/20/2018 01:51 PM Electronically Signed By:Debby Crook
--- NOTE | 2018-05-20 13:56 | ASDISCHSUM ---
Discharge Information Plan Status:Home with No Needs Medically Cleared to Leave:05/19/2018 Discharge Date:05/20/2018 01:52 PM CM D/C Disposition:Home, Routine, Self-Care ADT D/C Disposition:Home, Routine, Self-Care Projected Discharge Date:05/20/2018 01:52 PM Transportation at D/C:Family Discharge Delay Reason: Follow-Up Date:05/20/2018 01:52 PM Discharge Slot: Final Diagnosis:GI bleed Placement Information Patient Contact Information Contact Name:TATYANA Relationship: Address:[address] [place] [address] Work Phone: Connor:KOBI Lima Phone: [facility]/Zip Code:[place] [address] Email: Financial Information Financial Class:Medicare Primary Plan Desc:MEDICARE OUTPATIENT Primary Plan Number:[id number] Secondary Plan Desc: Secondary Plan Number: Assessment Information Case Management Discharge Plan Note Case Management Discharge Discharge Order Complete? Answers: Yes Patient to Obtain Answers: via Family Medications Transportation Arranged Answers: Family/Friends Transport will Pick (Date 05/20/2018 12:00 AM & Time) Family Notified Answers: Yes Notes: in the room Discharge Comments Notes: Spoke with pt and in the room, and with RN. Pt to discharge home independently with support from . Pt triggered CAGE screen and scored positive. Pt is aware he needs to cut back on his drinking, states he has attending AA before and knows how to do it. Pt declined supportive resources from CM. Pt informed of screen. No further CM needs noted at this time. CM available should needs change. Date Signed: 05/20/2018 01:51 PM Electronically Signed By:Debby Crook LACE LACE Length of stay for Answers: Less than 1 day current admission Acuity / Level of Answers: No Care: Did the patient have an inpatient admission? Comorbidities - select Answers: Mild liver or renal all that apply disease Other Notes: HIV+ # of Emergency department Answers: 1-2 visits in the last 6 months Social determinants Answers: History of substance abuse (ETOH, street drugs, prescription drugs, etc.) Score: 7 Date Signed: 05/20/2018 01:55 PM Electronically Signed By:Debby Crook Intervention Information
--- NOTE | 2018-05-20 16:20 | PDDCSUM ---
Discharge Summary Discharge Summary: patient is a 48 year old male on HIV, with recent diagnosis of prostatitis admitted with concern for GI bleed due to having black stools. His fecal occult was negative however in the ER and his Hct only dropped slightly overnight, likely due to IVF hydration. He was made NPO and underwent an EGD which was essentially normal. GI recommended returning to normal diet. Patient did mention that he had taken bismuth a few days prior to coming in which may have actually been the source of his black stools.He was discharged in good condition to follow up with his PCP and urologist for his prostatitis Discharge diagnosis -prostatitis -cystits -HIV on ARVT Disposition- home in good condition new medications- None
== END 2018-05-20 13:52 | disposition home or self-care (01) ==
LOC: F3E 16:03
PROVIDERS: ADMIT Internal Medicine; ATTEND Internal Medicine
PROC: 0DB68ZX Excision of Stomach, Via Natural or Artificial Opening Endoscopic, Diagnostic (ICD-10-PCS; principal; 2018-05-19)
DX: K92.2 Gastrointestinal hemorrhage, unspecified (principal); N41.9 Inflammatory disease of prostate, unspecified; B20 Human immunodeficiency virus [HIV] disease; N39.0 Urinary tract infection, site not specified; E86.0 Dehydration
CPT/HCPCS: 43239; G0378; J0696; J2001; J2405; J2704; 96374